=== PATIENT | female | born 1995 | race African-American/Black ===

== ENCOUNTER 2021-06-01 08:57 | Emergency (ER) | payer OTHER ==
[~2021-06-01] VITALS: Ht 162.6 cm; Wt 59.0 kg
--- NOTE | 2021-06-01 09:22 | NUR ---
DR MERINO AT BEDSIDE
--- NOTE | 2021-06-01 09:35 | NUR ---
PHLEB AT BEDSIDE
--- NOTE | 2021-06-01 09:40 | NUR ---
URINE COLLECTED AND SENT TO LAB
[2021-06-01 09:59] LABS: HEMATOCRIT 34 % (33-45); HEMOGLOBIN 11.3 g/dL (11.5-14.8); MEAN CORPUSCULAR HGB CONC 33 g/dl (31.0-36.0); MEAN CORPUSCULAR VOLUME 87 fL (82-100); RED BLOOD CELL COUNT(AUTO) 3.94 MIL/uL (4.0-5.2); WHITE BLOOD COUNT (AUTO) 10.8 K/uL (4.3-11.0)
[2021-06-01 10:17] LABS: BILIRUBIN,URINE NEGATIVE (NEGATIVE); COLOR,URINE YELLOW (YELLOW); LEUKOCYTE ESTERASE ,URINE LARGE (NEGATIVE); NITRITE, URINE POSITIVE (NEGATIVE); PROTEIN,URINE 30 mg/dl (NEGATIVE); UGLUCOSE NEGATIVE (NEGATIVE); UROBILINOGEN,URINE 0.2 EU/dL (0.2)
[2021-06-01 10:21] LABS: CREATININE 0.7 mg/dL (0.6-1.3)
[2021-06-01 10:27] LABS: ALBUMIN 3.6 g/dL (3.4-5.0); BILIRUBIN,DIRECT 0.1 mg/dL (0.0-0.2); BILIRUBIN,TOTAL 0.4 mg/dL (0.2-1.0); TOTAL PROTEIN, SERUM 8.1 g/dL (6.4-8.2)
[2021-06-01 10:42] LABS: BACTERIA,URINE Moderate /HPF (None Seen); SQUAMOUS EPITHELIAL CELL,UR Few /HPF (None Seen); WBC,URINE TOO NUMEROUS TO COUN /HPF (0-3)
--- NOTE | 2021-06-01 10:50 | NUR ---
DYLON MONGE AT BEDSIDE
[2021-06-01] MEDS ORDERED: CEFTRIAXONE 1 G VIAL IM ONE (11:00)
[2021-06-01] MEDS ORDERED: CEFTRIAXONE 1 G VIAL ONE (11:01)
[2021-06-01] MEDS ORDERED: LIDOCAINE /MPF 1% VIAL 5 ML VIAL ONE (11:01)
[2021-06-01] MEDS ORDERED: CEPH500C2 PO (11:44)
--- NOTE | 2021-06-01 11:54 | NUR ---
Patient discharged to home in stable condition. Written and verbal after care instructions given. Patient verbalizes understanding of instruction.
[2021-06-01 11:55] VITALS: BP 126/73
[2021-06-01 13:48] LABS: PLATELET COUNT (AUTO) 158 K/uL (150-450)
[2021-06-01 13:49] LABS: LYMPHOCYTES % (MANUAL) 7 % (16-48); MONOCYTES % (MANUAL) 9 % (0-11.0); NEUTROPHILS % (MANUAL) 84 (42-76)
== END 2021-06-01 11:55 | disposition home or self-care (01) ==
LOC: ER 09:01
DX: N12 Tubulo-interstitial nephritis, not specified as acute or chronic (principal); N83.9 Noninflammatory disorder of ovary, fallopian tube and broad ligament, unspecified
CPT/HCPCS: 36415; 76705; 76856; 80048; 80076; 81001; 83690; 84703; 85007; 85025; 87086; 96372; 99284; J0696; J3490

== ENCOUNTER 2022-01-26 18:51 | Emergency (ER) | payer OTHER ==
[~2022-01-26 18:51] MED LIST: CEPH500C2 PO
--- NOTE | 2022-01-26 19:58 | NUR ---
CALLED TO BE TRAIGED, NO ANSWER
--- NOTE | 2022-01-26 22:31 | NUR ---
CALLED TO BE TRAIGED, NO ANSWER
--- NOTE | 2022-01-26 22:58 | NUR ---
CALLED TO BE TRAIGED, NO ANSWER
== END 2022-01-26 22:58 | disposition left against medical advice (07) ==
LOC: ER 18:51
DX: Z53.21 Procedure and treatment not carried out due to patient leaving prior to being seen by health care provider (principal)